=== PATIENT | male | born 2005 | race Caucasian/White ===

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

== ENCOUNTER 2025-02-08 10:37 | Outpatient (REF) | payer BC, SELFPAY ==
[2025-02-08 15:16] LABS: Bilirubin Negative (Negative); Blood Negative (Negative); Clarity Cloudy (Clear); Glucose Negative (Negative); Ketones Negative (Negative); Leukocyte Esterase Negative (Negative); Nitrite Negative (Negative); Urobilinogen 0.2 mg/dL (Up to 0.2)
== END 2025-02-08 10:38 | disposition home or self-care (01) ==
LOC: LBN 10:37
PROVIDERS: PCP Student in an Organized Health Care Education/Training Program; Referring Provider Student in an Organized Health Care Education/Training Program; Visit Provider Student in an Organized Health Care Education/Training Program
DX: R30.0 Dysuria (principal)
CPT/HCPCS: 81003

== ENCOUNTER 2025-05-15 08:15 | Outpatient (CLI) | payer BC, SELFPAY ==
[2025-05-15 07:57] LABS: Bilirubin Negative (Negative); Blood Trace-lysed (Negative); Clarity Clear (Clear); Glucose Negative (Negative); Ketones Negative (Negative); Leukocyte Esterase Negative (Negative); Nitrite Negative (Negative)
[2025-05-15 07:58] LABS: Abs Immature Grans 0.01 10^3/uL (0.0-0.06); Absolute Basophil Count 0.03 10^3/uL (0.0-0.2); Absolute Eosinophil Count 0.11 10^3/uL (0.0-0.7); Absolute Monocyte Count 0.48 10^3/uL (0.1-0.8); Absolute Neutrophil Count 2.02 10^3/uL (1.2-6.7); Basophils % 0.7 %; Eosinophils % 2.5 %; HCT 47.2 % (40.0-50.0); HGB 15.9 g/dL (13.5-17.5); Immature Grans % 0.2 %; Lymphocytes % 40.4 %; MCH 28.8 pg (27.0-33.0); MCHC 33.7 % (32.0-36.0); MCV 86 fL (80-95); MPV 10.4 fL (8.0-11.0); Monocytes % 10.8 %; Neutrophils % 45.4 %; Platelet Count 178 10^3/uL (130-400); RBC 5.52 10^6/uL (4.36-5.78); RDW 12.8 % (11.8-14.1); RDW-SD 39.8 fL; WBC 4.45 10^3/uL (4.4-10.8)
[2025-05-15 08:13] LABS: Bacteria Negative HPF (Negative); C & S Indicated? No; Casts Negative LPF (Negative); Crystals Rare Amorphous HPF (Negative); Epithelial Cells Rare HPF (Negative); Mucus Trace (Negative); RBC 0-2 HPF (0-2); WBC 0-2 HPF (0-5)
[2025-05-15 08:20] LABS: Hemoglobin A1C 5.2 % (<5.7)
[2025-05-15 09:24] LABS: ALT 34 U/L (16-63); AST 16 U/L (15-37); Albumin 4.5 g/dL (3.4-5.0); Alkaline Phosphatase 83 U/L (46-116); Anion Gap 5.9 mmol/L (3-11); BUN 13 mg/dL (7-18); Bilirubin, Total 1.1 mg/dL (0.2-1.0); CO2 31.1 mmol/L (21.0-32.0); CREATININE 1.3 mg/dL (0.70-1.30); Calcium 9.4 mg/dL (8.5-10.1); Chloride 104 mmol/L (98-107); Estimated GFR 80.65 (mL/min/1.73m2); Ferritin 114 ng/mL (26-388); Folate 17.1 ng/mL (8.6-20.0); Glucose 94 mg/dL (74-106); Magnesium 1.9 mg/dL (1.8-2.4); Potassium 3.9 mmol/L (3.5-5.1); Sodium 141 mmol/L (136-145); Total Protein 7.3 g/dL (6.4-8.2); Vitamin B12 328 pg/mL (193-986); Vitamin D 25 Total 31 ng/mL (30-100)
[2025-05-15 09:37] LABS: Iron 151 ug/dL (65-175); Total Iron Binding Capacity 300 ug/dL (250-450); Transferrin Sat 50 % (20-55)
[2025-05-15 19:15] LABS: Homocysteine 10.5 umol/L (5.0-13.9)
== END 2025-05-15 08:16 | disposition home or self-care (01) ==
LOC: LBO 08:15
PROVIDERS: PCP Student in an Organized Health Care Education/Training Program; Visit Provider Naturopath
DX: R35.0 Frequency of micturition (principal); E55.9 Vitamin D deficiency, unspecified; R53.83 Other fatigue; Z87.442 Personal history of urinary calculi
CPT/HCPCS: 36415; 80053; 82306; 83090; 81003; 81015; 82607; 82728; 82746; 83036; 83540; 83550; 83735; 85025